=== PATIENT | male | born 1960 | race Caucasian/White ===

== ENCOUNTER 2016-12-04 14:09 | Outpatient (CLI) | payer OTHER ==
--- NOTE | 2016-12-04 14:45 | RAD ---
TWO VIEWS RIGHT KNEE: History: Right knee pain after fall. Disability evaluation. Comparison: None. FINDINGS: Two views of the right knee shows moderate to severe tricompartmental joint space narrowing and oste ophyte formation consistent with osteoarthritis. No knee effusion is seen. There is no evidence of f racture or dislocation. IMPRESSION: Moderate to severe right knee osteoarthritis. POS: [facility]
== END 2016-12-04 14:10 | disposition home or self-care (01) ==
LOC: NAV RAD 14:09
PROVIDERS: ATTEND Family Medicine
DX: Z02.71 Encounter for disability determination (principal)